=== PATIENT | female | born 1980 | race Caucasian/White ===

== ENCOUNTER 2017-04-20 16:10 | Emergency (ER) | payer BC ==
[~2017-04-20] VITALS: Ht 167.6 cm; Wt 117.9 kg
[~2017-04-20 16:10] MED LIST: AMOX500T2 PO; BENZ200C25 PO; CEFD300C3 PO; DIET25TA57 PO; HYDR-3454 PO; HYDR-757 PO; ONDA-42 SL; PHEN-483 PO; PHEN200T27 PO; SULF-222 PO; SULF1TAB35 PO; TOPI25TA10 PO
--- NOTE | 2017-04-20 16:59 | ED Lower Extremity ---
General Chief Complaint: Lower Extremity Stated Complaint: R FOOT INJ Nursing Triage Note: AMB TO ROOM REPORTS HIT R FOOT ON BED YESTERDAY. PAIN AND BRUSING ON TOP OF FOOT. UNSURE IF SHE WILL BE ABLE TO WORK. Nursing Sepsis Screen: No Definite Risk History of Present Illness Time seen by provider: 16:40 Initial Comments Right foot pain specifically fifth toe and lateral distal aspect. Reports she jumped out of bed last night and hit her foot on the frame of the bed. She took naproxen at 1515 today. Onset: yesterday Pain/Injury Location: right foot, right 5th toe Method of Injury: direct blow Modifying Factors: Improves With Rest Allergies and Home Medications Allergies Coded Allergies: No Known Drug Allergies (Unverified , 12/02/11) Home Medications Phentermine HCl 37.5 Mg Capsule, 37.5 MG PO DAILY, (Reported) Topiramate 25 Mg Tablet, 1 TAB PO DAILY, #60 (Reported) Constitutional: no symptoms reported, see HPI Musculoskeletal: see HPI, joint pain (right fifth toe), joint swelling, muscle pain (right foot) Skin: no symptoms reported, see HPI All Other Systems Reviewed Negative Unless Noted: Yes Past Ilqudbj-Fhfjgl-Akxqvf Hx Patient Social History Alcohol Use: Denies Use Recreational Drug Use: No Smoking Status: Current Everyday Smoker Recent Foreign Travel: No Contact w/Someone Who Travel: No Recent Infectious Disease Expo: No Immunizations Up To Date Tetanus Booster (TDap): Unknown Date of Influenza Vaccine: Dec 02, 2011 Seasonal Allergies Seasonal Allergies: No Surgeries HX Surgeries: Yes Surgeries: Adenoidectomy, Section, Ear Surgery, Tonsillectomy Respiratory Hx Respiratory Disorders: No Cardiovascular Hx Cardiac Disorders: No Neurological Hx Neurological Disorders: No Reproductive System Hx Reproductive Disorders: No Genitourinary Hx Genitourinary Disorders: No Gastrointestinal Hx Gastrointestinal Disorders: No Musculoskeletal Hx Musculoskeletal Disorders: No Endocrine Hx Endocrine Disorders: No HEENT HX ENT Disorders: No Cancer Hx Cancer: No Psychosocial Hx Psychiatric Problems: No Integumentary HX Skin/Integumentary Disorder: No Blood Transfusions Hx Blood Disorders: No Physical Exam Vital Signs Vital Sign - Last 12Hours 04/20/17 16:15 Temp 97.5 Pulse 72 Resp 18 B/P (MAP) 135/89 Pulse Ox 96 O2 Delivery Room Air Capillary Refill : Less Than 3 Seconds General Appearance: WD/WN, no apparent distress Cardiovascular: normal peripheral pulses, regular rate, rhythm, no murmur Respiratory: chest non-tender, lungs clear, normal breath sounds Ankles: right ankle non-tender, right ankle normal inspection, right ankle normal range of motion, right ankle no evidence of injury Feet: right foot ecchymosis, right foot limited range of motion, right foot pain (lateral aspect and fifth toe), right foot soft tissue tenderness, right foot swelling Neurologic/Tendon: normal sensation, normal motor functions, normal tendon functions Neurologic/Psychiatric: no motor/sensory deficits, alert, normal mood/affect, oriented x 3 Progress/Results/Core Measures Results/Orders My Orders Orders - BENI ARROYO Foot, Right, 3 View (04/20/17 16:43) Tramadol Tablet (Ultram Tablet) (04/20/17 17:01) Vital Signs/I&O Vital Sign - Last 12Hours 04/20/17 04/20/17 16:15 17:10 Temp 97.5 97.5 Pulse 72 72 Resp 18 18 B/P (MAP) 135/89 Pulse Ox 96 96 O2 Delivery Room Air Blood Pressure Mean: 104 Diagnostic Imaging Diagonstic Imaging: Xray Plain Films/CT/US/NM/MRI: other (right foot) Comments NAME: CASIE LAYTON Chacorta [facility] REC#: [id number] PT STATUS: DEP ER : 1980 PHYSICIAN: BENI ARROYO ADMIT DATE: 04/20/17/ER Signed Date of Exam: 04/20/17 FOOT, RIGHT, 3 VIEW INDICATION: Trauma, pain to the right third, fourth, and fifth digits. FINDINGS: Three views of the right foot show a nondisplaced transverse fracture through the base of the proximal phalanx of the fifth digit. No other acute abnormality is seen. IMPRESSION: There is nondisplaced transverse fracture involving the base of the proximal phalanx of the right fifth digit. Dictated by: Dictated on workstation # [id number] Dict: 04/20/171701 Trans: 04/20/171707 Interpreted by: JEFFERSON DE ANDA MD Electronically signed by: JEFFERSON DE ANDA MD 04/20/171707 Reviewed: Reviewed by Me Departure Impression Impression: Primary Impression: Contusion of right foot including toes Qualified Codes: S90.31XA - Contusion of right foot, initial encounter; S90.121A - Contusion of right lesser toe(s) without damage to nail, initial encounter Additional Impression: Fracture of phalanx of right foot, closed Qualified Codes: S92.514A - Nondisplaced fracture of proximal phalanx of right lesser toe(s), initial encounter for closed fracture Disposition: HOME, SELF-CARE Condition: Improved Departure-Patient Inst. Decision time for Depature: 17:00 Referrals: NO,LOCAL PHYSICIAN (PCP/Family) Primary Care Physician Patient Instructions: Contusion (DC), Toe Fracture (DC) Add. Discharge Instructions: Ice to right foot 20 minutes every 2-3 hours. Firm soled shoes. Walter tape fourth and fifth toes together. Continue naproxen twice daily, may also use Tylenol 650 mg every 6 hours for pain. Follow-up with primary care provider if symptoms are not improving in 2-3 days. Return to emergency department for new injuries. All discharge instructions reviewed with patient and/or family. Voiced understanding. BENI ARROYO Apr 20, 2017 16:59
--- NOTE | 2017-04-20 17:06 | Diagnostic Imaging Report ---
INDICATION: Trauma, pain to the right third, fourth, and fifth digits. FINDINGS: Three views of the right foot show a nondisplaced transverse fracture through the base of the proximal phalanx of the fifth digit. No other acute abnormality is seen. IMPRESSION: There is nondisplaced transverse fracture involving the base of the proximal phalanx of the right fifth digit. Dictated by: Dictated on workstation # [id number]
[2017-04-20 17:10] VITALS: BP 135/89
== END 2017-04-20 17:10 | disposition home or self-care (01) ==
LOC: EDUNIT# 16:10 → ER 16:13
DX: S92.514A Nondisplaced fracture of proximal phalanx of right lesser toe(s), initial encounter for closed fracture (principal); F17.210 Nicotine dependence, cigarettes, uncomplicated; Z90.89 Acquired absence of other organs; Z87.59 Personal history of other complications of pregnancy, childbirth and the puerperium; W22.03XA Walked into furniture, initial encounter
CPT/HCPCS: 73630; 99283

== ENCOUNTER → 2017-08-15 | Outpatient (REF) ==
--- NOTE | 2017-08-15 12:22 | Diagnostic Imaging Report ---
INDICATION: Smashed fourth and fifth right metacarpals with ladder. FINDINGS: Three views show no fractures. There are no dislocations. The joint spaces are well preserved with smooth articulating surfaces. No radiopaque foreign body. IMPRESSION: Normal right hand. Dictated by: Dictated on workstation # [id number]
== END | disposition home or self-care (01) ==
LOC: OCC 11:52
PROVIDERS: ATTEND Nurse Practitioner Family
CPT/HCPCS: 73130

== ENCOUNTER → 2018-10-01 | Outpatient (CLI) | payer BC, OTHER ==
--- NOTE | 2018-10-01 19:55 | Diagnostic Imaging Report ---
PROCEDURE: US left lower extremity venous. TECHNIQUE: Multiple real-time grayscale images were obtained over the left lower extremity in various projections. Additional duplex Doppler and color Doppler images were also obtained. INDICATION: Left lower extremity swelling. FINDINGS: There is no evidence of a left lower extremity DVT. Left lower extremity deep venous system shows normal compressibility. There is normal response to augmentation and Valsalva. No fluid collection or mass is seen. IMPRESSION: No evidence of left lower extremity DVT. Dictated by: Dictated on workstation # [id number]
== END ==
LOC: RAD 14:32
PROVIDERS: ATTEND Family Medicine
DX: M79.89 Other specified soft tissue disorders (principal)

== ENCOUNTER → 2018-12-31 | Outpatient (REF) ==
[~2018-12-31] MED LIST changes: -HYDR-3454 PO; +HYDR-3455 PO
--- NOTE | 2018-12-31 16:35 | Diagnostic Imaging Report ---
CLINICAL INDICATION: Patient hit head yesterday. Patient has posterior head pain. Neck was ronda during event. Exam: X-ray of the skull, multiple views, and lateral nasal bone views. Comparison: None. Findings and impression: 1: There is a lucency across the mandibular angle seen on lateral view which may represent confluence of shadows or nutrient canal. This does not extend to the cortex and a fracture suspected to be less likely. If there is concern for mandibular fracture, maxillofacial CT scan would better evaluate. 2: Otherwise, there is no acute skull or maxillofacial fracture, as visualized. 3: There is suspected bilateral maxillary sinus disease and mucosal thickening. Dictated by: Dictated on workstation # [id number]
--- NOTE | 2018-12-31 16:43 | Diagnostic Imaging Report ---
CLINICAL INDICATION: Patient hit in head yesterday with posterior head pain and neck was ronda during the event. EXAM: X-ray of the cervical spine, four views including odontoid views. COMPARISON: None. FINDINGS: Cervical spine has normal alignment and no acute fracture or dislocation. There is moderate loss of intervertebral disc height with hypertrophic spurring at C5-C6 level. The C6 and C7 vertebrae are partially obscured by overlapping anatomical structures. There is no prevertebral soft tissue thickening. IMPRESSION: 1: There is no acute cervical spine fracture or dislocation. 2: There is degenerative disease at the C5-C6 level. Dictated by: Dictated on workstation # [id number]
== END | disposition home or self-care (01) ==
LOC: RAD 15:30
PROVIDERS: ATTEND Family Medicine
CPT/HCPCS: 70250; 72040

== ENCOUNTER 2021-01-28 16:10 | Emergency (ER) | payer OTHER ==
[~2021-01-28] VITALS: Ht 170.1 cm; Wt 142.8 kg
--- NOTE | 2021-01-28 16:28 | ED General ---
General Stated Complaint: FELL THROUGH PORCH/R LEG INJ Source of Information: Patient Exam Limitations: No Limitations History of Present Illness Date Seen by Provider: January 28, 2021 Time Seen by Provider: 16:24 Initial Comments To ER with a Workmen's Comp. related injury. 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 She complains of some pain and swelling to the right lower leg and pain to the left knee. No other injury. Timing/Duration: 1-3 Hours Severity: Moderate Associated Systoms: Denies Symptoms Allergies and Home Medications Allergies Coded Allergies: No Known Drug Allergies (Unverified , 12/02/11) Home Medications Phentermine HCl 37.5 Mg Capsule, 37.5 MG PO DAILY, (Reported) Topiramate 25 Mg Tablet, 1 TAB PO DAILY, (Reported) Patient Home Medication List Home Medication List Reviewed: Yes Review of Systems Review of Systems Constitutional: see HPI EENTM: see HPI Respiratory: no symptoms reported Cardiovascular: no symptoms reported Genitourinary: no symptoms reported Musculoskeletal: see HPI Skin: no symptoms reported Psychiatric/Neurological: No Symptoms Reported Hematologic/Lymphatic: No Symptoms Reported Past Rtsqytk-Hdqbon-Mtkjbm Hx Immunizations Up To Date Tetanus Booster (TDap): Unknown Date of Influenza Vaccine: Dec 02, 2011 Seasonal Allergies Seasonal Allergies: No Past Medical History Surgeries: Yes Adenoidectomy, Section, Ear Surgery, Tonsillectomy Respiratory: No Cardiac: No Neurological: No Reproductive Disorders: No Gastrointestinal: No Musculoskeletal: No Endocrine: No Cancer: No Psychosocial: No Integumentary: No Blood Disorders: No Physical Exam Vital Signs Vital Signs - First Documented 01/28/21 16:19 Temp 36.0 Pulse 96 Resp 20 B/P (MAP) 142/91 (108) Pulse Ox 95 O2 Delivery Room Air Capillary Refill : Height, Weight, BMI Height: 5'6.00" Weight: 260lbs. oz. 117.619806ic; BMI Method:Stated General Appearance: No Apparent Distress, WD/WN Eyes: Bilateral Eye Normal Inspection, Bilateral Eye PERRL, Bilateral Eye EOMI HEENT: PERRL/EOMI, TMs Normal Neck: Full Range of Motion, Normal Inspection Respiratory: No Accessory Muscle Use, No Respiratory Distress Gastrointestinal: Normal Bowel Sounds, Non Tender, Soft Extremity: Other (To the left knee there is a normal appearance with full range of motion but complains of pain. To the right lower leg medial aspect of the distal femur and proximal tibia there is some firm swelling consistent with a hematoma. No open wounds. The lateral aspects of the leg at this location is nontender, she has a strong dorsalis pedis pulse. She can plantar flex and dorsiflex her foot. Just inferior to this palpable hematoma she is nontender to palpation circumferentially.) Neurologic/Psychiatric: Alert, Oriented x3 Progress/Results/Core Measures Suspected Sepsis SIRS Temperature: Pulse: Respiratory Rate: Blood Pressure / Mean: Results/Orders My Orders Orders - JOHNSON ABDALLA APRN Knee, 3 Views, Bilateral (01/28/21 16:22) Hydrocodone/Apap 5/325 Tablet (Lortab 5 (01/28/21 16:30) Medications Given in ED Current Medications Medications Dose Ordered Sig/Len Route Start Time Stop Time Status Last Admin Dose Admin Acetaminophen/ Hydrocodone Bitart 1 ea ONCE ONCE PO 01/28/21 16:30 01/28/21 16:31 DC 01/28/21 16:31 1 EA Vital Signs/I&O 01/28/21 16:19 Temp 36.0 Pulse 96 Resp 20 B/P (MAP) 142/91 (108) Pulse Ox 95 O2 Delivery Room Air Capillary Refill : Departure Communication (Admissions) NAME: CASIE LAYTON [facility] REC#: [id number] PT STATUS: REG ER : 1980 PHYSICIAN: JOHNSON ABDALLA APRN ADMIT DATE: 01/28/21/ER Draft Date of Exam:01/28/21 KNEE, 3 VIEWS, BILATERAL CLINICAL HISTORY: Fall. Bilateral knee pain. COMPARISON: None. TECHNIQUE: Six views of the bilateral knees. FINDINGS: There is no acute fracture or dislocation of the bilateral knees. Alignment is anatomic. Degenerative changes are seen in the knees with joint space narrowing and marginal osteophyte formation. These are greatest in the lateral compartment of the left knee. No large joint effusion is present. The surrounding soft tissues are unremarkable. IMPRESSION: 1. No acute fracture or dislocation in the knees. 2. Osteoarthritis in the knees, with moderate degenerative changes present in the lateral compartment of the left knee. Dictated on workstation # [id number] Dict: 01/28/21 1710 Trans: 01/28/21 171 [facility] [id number] Interpreted by: FLORENCE NAGEL DO Electronically signed by: Impression Primary Impression: Hematoma of right lower leg Disposition: HOME, SELF-CARE Condition: Stable Departure-Patient Inst. Decision time for Depature: 16:28 Referrals: NO,LOCAL PHYSICIAN (PCP/Family) Primary Care Physician Patient Instructions: HEMATOMA Add. Discharge Instructions: 1. Pain medication as directed. Elevate the lower leg is much as possible. Keep the Salvador wrap in place. Expect bruising to show up over the next 1 to 2 weeks and the bruising will actually be lower than where it started out today because of gravity pulling it down. Follow-up with your doctor next week for recheck. Images Extremities-Lower 1 - Ecchymosis, Tenderness, Other-See Progress Note JOHNSON ABDALLA APRN January 28, 2021 16:28
[2021-01-28] MEDS ORDERED: HYDROcodone/APAP 5 MG/325 MG (LORTAB) TAB PO ONE (16:30)
--- NOTE | 2021-01-28 17:13 | Diagnostic Imaging Report ---
CLINICAL HISTORY: Fall. Bilateral knee pain. COMPARISON: None. TECHNIQUE: Six views of the bilateral knees. FINDINGS: There is no acute fracture or dislocation of the bilateral knees. Alignment is anatomic. Degenerative changes are seen in the knees with joint space narrowing and marginal osteophyte formation. These are greatest in the lateral compartment of the left knee. No large joint effusion is present. The surrounding soft tissues are unremarkable. IMPRESSION: 1. No acute fracture or dislocation in the knees. 2. Osteoarthritis in the knees, with moderate degenerative changes present in the lateral compartment of the left knee. Dictated by: Dictated on workstation # [id number]
[2021-01-28 17:56] VITALS: BP 142/91
== END 2021-01-28 17:56 | disposition home or self-care (01) ==
LOC: EDUNIT# 16:10 → ER 16:14
DX: S80.11XA Contusion of right lower leg, initial encounter (principal); W17.89XA Other fall from one level to another, initial encounter; Y99.0 Civilian activity done for income or pay

== ENCOUNTER 2021-02-22 00:20 | Emergency (ER) | payer OTHER ==
[~2021-02-22] VITALS: Ht 170.1 cm; Wt 145.1 kg
[~2021-02-22 00:20] MED LIST changes: -DOXY100T2 PO
[2021-02-22 01:45] LABS: BASOPHILS # (AUTO) 0.1 10^3/uL (0.0-0.1); BASOPHILS % (AUTO) 1 % (0-10); EOSINOPHILS # (AUTO) 0.2 10^3/uL (0.0-0.3); EOSINOPHILS % (AUTO) 2 % (0-10); HEMATOCRIT 45 % (35-52); LYMPHOCYTES # (AUTO) 2.9 10^3/uL (1.0-4.0); LYMPHOCYTES % (AUTO) 37 % (12-44); MEAN CORPUSCULAR HEMOGLOBIN 29 pg (25-34); MEAN CORPUSCULAR HGB CONC 31 g/dL (32-36); MEAN CORPUSCULAR VOLUME 93 fL (80-99); MEAN PLATELET VOLUME 11.2 fL (9.0-12.2); MONOCYTES # (AUTO) 0.5 10^3/uL (0.0-1.0); MONOCYTES % (AUTO) 6 % (0-12); NEUTROPHILS # (AUTO) 4.2 10^3/uL (1.8-7.8); NEUTROPHILS % (AUTO) 54 % (42-75); PLATELET COUNT 247 10^3/uL (130-400); WHITE BLOOD COUNT 7.8 10^3/uL (4.3-11.0)
[2021-02-22 01:53] LABS: CHLORIDE 104 MMOL/L (98-107); POTASSIUM 3.5 MMOL/L (3.6-5.0); SODIUM 138 MMOL/L (135-145)
[2021-02-22 01:54] LABS: CALCIUM 9.1 MG/DL (8.5-10.1)
[2021-02-22 01:55] LABS: GLUCOSE 114 MG/DL (70-105)
[2021-02-22 01:57] LABS: CARBON DIOXIDE 22 MMOL/L (21-32)
[2021-02-22 01:59] LABS: CREATININE SERUM 0.78 MG/DL (0.60-1.30); GFR ESTIMATED > 60
[2021-02-22 02:00] LABS: BUN/CREATININE RATIO 12
[2021-02-22] MEDS ORDERED: DOXY100T2 PO (02:40)
--- NOTE | 2021-02-22 02:40 | ED Lower Extremity ---
General Chief Complaint: Lower Extremity Stated Complaint: RT LEG INJURY,SWOLLEN, HAPPENED ON 01.28.21 Nursing Triage Note: PATIENT STATES THAT SHE FELL OFF OF HER PORCH ON 01/28/21 INJURING HER RIGHT LOWER EXTREM. SHE WAS SEEN HERE IN THE ER AT THAT TIME. SINCE THEN SHE STATES IT HAS BEEN INCREASING IN REDNESS, SWELLING AND WARMTH. Nursing Sepsis Screen: No Definite Risk Source: patient Exam Limitations: no limitations Allergies and Home Medications Allergies Coded Allergies: No Known Drug Allergies (Unverified , 12/02/11) Home Medications Phentermine HCl 37.5 Mg Capsule, 37.5 MG PO DAILY, (Reported) Topiramate 25 Mg Tablet, 1 TAB PO DAILY, (Reported) Past Fupfxsc-Chfiky-Givfwx Hx Patient Social History Alcohol Use: Denies Use Type Used: Cigarettes 2nd Hand Smoke Exposure: Yes Recent Infectious Disease Expo: No Recent Hopitalizations: No Immunizations Up To Date Tetanus Booster (TDap): Unknown Date of Influenza Vaccine: Dec 02, 2011 Seasonal Allergies Seasonal Allergies: No Past Medical History Surgeries: Yes Adenoidectomy, Section, Ear Surgery, Tonsillectomy Respiratory: No Cardiac: No Neurological: No Reproductive Disorders: No Genitourinary: No Gastrointestinal: No Musculoskeletal: No Endocrine: No HEENT: No Cancer: No Psychosocial: No Integumentary: No Blood Disorders: No Physical Exam Vital Signs Vital Signs - First Documented 02/22/21 00:31 Temp 36.4 Pulse 82 Resp 22 B/P (MAP) 145/85 (105) Pulse Ox 95 O2 Delivery Room Air Capillary Refill : Less Than 3 Seconds Height, Weight, BMI Height: 5'6.00" Weight: 260lbs. oz. 117.765644br; 50.00 BMI Method:Stated Progress/Results/Core Measures Results/Orders Lab Results Laboratory Tests Test 02/22/21 01:40 Range/Units White Blood Count 7.8 4.3-11.0 10^3/uL Red Blood Count 4.79 3.80-5.11 10^6/uL Hemoglobin 14.0 11.5-16.0 g/dL Hematocrit 45 35-52 % Mean Corpuscular Volume 93 80-99 fL Mean Corpuscular Hemoglobin 29 25-34 pg Mean Corpuscular Hemoglobin Concent 31 L 32-36 g/dL Red Cell Distribution Width 15.4 H 10.0-14.5 % Platelet Count 247 130-400 10^3/uL Mean Platelet Volume 11.2 9.0-12.2 fL Immature Granulocyte % (Auto) 0 % Neutrophils (%) (Auto) 54 42-75 % Lymphocytes (%) (Auto) 37 12-44 % Monocytes (%) (Auto) 6 0-12 % Eosinophils (%) (Auto) 2 0-10 % Basophils (%) (Auto) 1 0-10 % Neutrophils # (Auto) 4.2 1.8-7.8 10^3/uL Lymphocytes # (Auto) 2.9 1.0-4.0 10^3/uL Monocytes # (Auto) 0.5 0.0-1.0 10^3/uL Eosinophils # (Auto) 0.2 0.0-0.3 10^3/uL Basophils # (Auto) 0.1 0.0-0.1 10^3/uL Immature Granulocyte # (Auto) 0.0 0.0-0.1 10^3/uL D-Dimer 1.82 H 0.00-0.49 UG/ML Sodium Level 138 135-145 MMOL/L Potassium Level 3.5 L 3.6-5.0 MMOL/L Chloride Level 104 98-107 MMOL/L Carbon Dioxide Level 22 21-32 MMOL/L Anion Gap 12 5-14 MMOL/L Blood Urea Nitrogen 9 7-18 MG/DL Creatinine 0.78 0.60-1.30 MG/DL Estimat Glomerular Filtration Rate > 60 BUN/Creatinine Ratio 12 Glucose Level 114 H 70-105 MG/DL Calcium Level 9.1 8.5-10.1 MG/DL C-Reactive Protein High Sensitivity 2.35 H 0.00-0.50 MG/DL My Orders Orders - ADOLFO CASAS MD Basic Metabolic Panel (02/22/21 01:06) Cbc With Automated Diff (02/22/21 01:06) Hs C Reactive Protein (02/22/21 01:06) Fibrin Degradation Products (02/22/21 01:06) Ed Iv/Invasive Line Start (02/22/21 01:06) Apixaban Tablet (Eliquis Tablet) (02/22/21 02:45) Doxycycline Hyclate Tablet (Vibramycin T (02/22/21 02:45) Vital Signs/I&O 02/22/21 00:31 Temp 36.4 Pulse 82 Resp 22 B/P (MAP) 145/85 (105) Pulse Ox 95 O2 Delivery Room Air Blood Pressure Mean: 105 Departure Impression Primary Impression: Edema of right lower extremity Additional Impression: Elevated d-dimer Disposition: 01 HOME, SELF-CARE Condition: Stable Departure-Patient Inst. Decision time for Depature: 02:36 Referrals: NO,LOCAL PHYSICIAN (PCP/Family) Primary Care Physician Patient Instructions: Cellulitis (Skin Infection), Adult (DC), Deep Vein Thrombosis (Blood Clots in the Legs) Add. Discharge Instructions: Return to the hospital between 7:00 and 7:30 this morning for an ultrasound of your leg. Please bring the order form with you. Stay at the hospital until tentative results are communicated to the ER physician. The ER physician will give you further instructions. If an anticoagulant is needed for treatment of DVT, one will be provided. If you do not have a DVT, we will treat as infection with antibiotics. In that case fill the printed prescription for doxycycline provided. Call with questions or concerns. You may take Tylenol (acetaminophen) up to 1000 mg every 6 hours as needed for pain. Avoid use of NSAID medications such as ibuprofen or naproxen if you take an anticoagulant. Return to care if you have worsening symptoms. Follow-up with your primary care provider soon as possible. All discharge instructions reviewed with patient and/or family. Voiced understanding. Scripts Doxycycline Hyclate (Doxycycline Hyclate) 100 Mg Tablet 100 MG PO BID, #20 TAB 0 Refills Prov: ADOLFO CASAS MD 02/22/21 ADOLFO CAASS MD Feb 22, 2021 02:40
[2021-02-22] MEDS ORDERED: DOXYCYCLINE 100 MG (VIBRAMYCIN) TABLET PO ONE (02:45)
[2021-02-22] MEDS ORDERED: APIXABAN 5 MG (ELIQUIS) TABLET PO ONE (02:45)
[2021-02-22 02:47] VITALS: BP 140/78
== END 2021-02-22 02:49 | disposition home or self-care (01) ==
LOC: EDUNIT# 00:20 → ER 00:24
DX: R60.0 Localized edema (principal); R79.1 Abnormal coagulation profile; Z77.22 Contact with and (suspected) exposure to environmental tobacco smoke (acute) (chronic)
CPT/HCPCS: 36415; 80048; 85025; 85379; 86141; 99283

== ENCOUNTER → 2021-02-22 | Outpatient (CLI) | payer OTHER ==
[~2021-02-22] MED LIST changes: +DOXY100T2 PO
--- NOTE | 2021-02-22 09:32 | Diagnostic Imaging Report ---
PROCEDURE: US right lower extremity venous. TECHNIQUE: Multiple real-time grayscale images were obtained over the right lower extremity in various projections. Additional spectral analysis and color Doppler duplex images were also obtained. INDICATION: Leg pain and swelling There are no prior ultrasound examinations available for comparison. There is fairly good blood flow and compressibility throughout the common femoral, superficial femoral and popliteal veins. There is no sign of a deep venous embolus. The calf veins were difficult to visualize due to lower leg edema. Also, there is a complex 8.4 x 15.1 x 5.8 cm hypoechoic area with internal echoes in the soft tissues along the posterior medial aspect of the knee joint. This could represent a Perales's cyst which has been complicated by infection or hemorrhage. A hematoma could also present in this manner. If further study of this finding is desired, then a short-term (2-4 week) follow-up ultrasound exam would be recommended. Impression: 1. There is no evidence for a deep venous thrombosis although the calf veins were difficult to visualize. 2. The complex fluid collection along the posterior medial aspect of the knee joint is of uncertain etiology. Considerations and recommendations as above. Dictated by: Dictated on workstation # [id number]
== END ==
LOC: RAD 08:15
PROVIDERS: ATTEND Family Medicine
DX: M79.89 Other specified soft tissue disorders (principal); M79.604 Pain in right leg; R60.0 Localized edema; R79.1 Abnormal coagulation profile

== ENCOUNTER → 2021-04-12 | Outpatient (REF) ==
[~2021-04-12] MED LIST changes: +DOXY100T2 PO; -SULF1TAB35 PO; +SULF1TAB38 PO
--- NOTE | 2021-04-12 11:30 | Diagnostic Imaging Report ---
INDICATION: Right foot pain. TECHNIQUE: AP, oblique, and lateral views of the right foot are obtained. FINDINGS: No fracture or acute bony abnormality is seen. There is no dislocation. There is plantar calcaneal spurring. There are degenerative findings of the ankle joint with chronic calcification inferior to the ankle joint. IMPRESSION: Chronic findings as above with no acute fracture. Dictated by: Dictated on workstation # [id number]
--- NOTE | 2021-04-12 12:08 | Diagnostic Imaging Report ---
INDICATION: Fall with pain and swelling to the right ankle. TIME OF EXAM: 10:45 a.m. Three views of the right ankle were obtained. Alignment is normal. Ankle mortise is well maintained. Talar dome is smooth. There are some degenerative changes to the ankle. There is ununited osteophyte at the anterior ankle best seen on lateral view. There are posterior osteophytes present at the talus. 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 There is a large plantar calcaneal spur. No definite fracture is seen. There appears to be some generalized soft tissue swelling. IMPRESSION: Soft tissue swelling and degenerative changes. No acute bony abnormality is detected. Dictated by: Dictated on workstation # [id number]
== END ==
LOC: OCC 10:28
PROVIDERS: ATTEND Family Medicine
DX: M25.571 Pain in right ankle and joints of right foot (principal); W19.XXXA Unspecified fall, initial encounter
CPT/HCPCS: 73610; 73630